=== PATIENT | male | born 1950 | race Caucasian/White ===

== ENCOUNTER 2024-08-23 23:33 | Inpatient (IN) | payer OTHER, MEDICARE, SELFPAY ==
[2024-08-23 18:59] VITALS: BP 148/83
[2024-08-23 19:19] LABS: Urine Albumin 1+ (Neg - Trace); Urine Bilirubin Negative (Negative); Urine Character Clear (Clear); Urine Color Yellow; Urine Glucose Negative (Negative); Urine Ketone Negative (Negative); Urine Leukocyte 2+ (Negative); Urine Nitrite Negative (Negative); Urine Occult Blood 4+ (Negative); Urine Urobilinogen Negative (Neg - 1+)
[2024-08-23 19:25] LABS: Urine Squamous Cell 0-2 /LPF (Few)
[2024-08-23 19:26] LABS: Urine Bacteria Moderate (Negative); Urine White Cell 90-100 /HPF (0-5)
[2024-08-23 20:05] VITALS: BMI 26.6
--- NOTE | 2024-08-23 20:08 | ED.GENMED ---
History of Present Illness
General
Chief Complaint: Male Genito-Urinary Symptoms
Source: patient and spouse
Exam Limitations: none
Time Seen by Provider: 08/23/24 19:43
History of Present Illness
History of Present Illness:
This is a 73 year old male that is brought in by his family with c/o abd pain. states that over the past year she has noticed that he is spending more and more time in the bathroom. Patient states that he has the urge to urinate and he has a
good stream but there is burning. Family feels that his walking is not steady. Patient states that he has been constipated and he only goes every other day. Denies any fever, chills, chest pain, SOB, abd pain, nausea, vomiting, diarrhea, headache,
dizziness.
Past History
Past History
ED Past Medical History: Arrthythmia (Atrial fi), Psychiatric (Anxiety) and Other (Renal calculus)
ED Past Surgical History: Cardiac (Valve repair)
Social History
Tobacco: Non-smoker
Alcohol: None
Personal:
Living: with family
Review of Systems
Review of Systems
All Other Systems: ROS reviewed and negative except as documented in HPI and ROS
Constitutional: Reports no symptoms; Denies fever or chills
EENT: Reports no symptoms
Respiratory: Reports no symptoms; Denies cough or trouble breathing
Cardiac: Reports no symptoms; Denies chest pain
ABD/GI: Reports constipated; Denies abdominal pain, nausea, vomiting or diarrhea
: Reports dysuria; Denies frequency or urgency
Musculoskeletal: Reports no symptoms
Skin: Reports no symptoms
Neurological: Reports no symptoms; Denies dizzy or headache
Psychiatric: Reports no symptoms
Phy Exam
General Physical Exam
General Presentation: no apparent distress
General age: appears older than age
General Skin: warm and dry
General Habitus: elderly
General Mental: alert
General Hydration: dry mucous membranes
ENT Exam
ENT Exam: TM's normal, pharynx normal and neck supple
Eye Exam
Eye Exam: EOMI
Cardiovascular Exam
Cardiovascular Exam: normal peripheral pulses and irregularly irregular
Pulmonary Exam
Pulmonary Exam: lungs clear, no respiratory distress, no rales, chest non tender, no crackles, no rhonchi, no wheezing and no cough
Gastrointestinal Exam
Gastrointestinal Exam: normal bowel sounds, non tender, soft, no organomegaly, no pulsatile mass and non distended
Musculoskeletal Exam
Musculoskeletal Exam: full ROM and edema (+1 pitting edema in both lower legs)
Skin Exam
Skin Exam: normal color, warm/dry, no rash and no petechia
Psychiatric Exam
Psychiatric Exam: normal mood/affect
Course
Orders/Labs/Results
Orders:
Orders
08/23/24 19:15
Urinalysis Reflex To Culture Urgent
Date Specimen was Collected: 08/23/24
Time Specimen was Collected: 19:09
Urine Microscopic Reflex Cult Urgent
Urine Culture Urgent
JILLIAN Source: U
Specimen Description:
Date Specimen was Collected: 08/23/24
Time Specimen was Collected: 19:09
08/23/24 19:55
Electrocardiogram (*1) Urgent
Reason for Study: Abdominal Pain
CT Abd/pel Without Iv Or Oral Urgent
Comment: UTI history of stones
Reason For Exam: abd pain,
EKG- Treatment ONCE
CefTRIAXone [Rocephin] 1,000 mg IV NOW STA
08/23/24 20:09
Bladder Scan- Treatment ONCE
08/23/24 20:16
Complete Blood Count/With Diff Urgent
Comprehensive Metabolic Panel Urgent
Lactate Level [Lactic Acid] Urgent
08/23/24 21:04
Sterile Water [Sterile Water For Injection] 10 ml .ROUTE .[facility]
08/23/24 21:24
Bernard [Bernard Placement- Treatment] ONCE
Reason for insertion: Acute Retention
Abnormal Lab Results
08/23/24 08/23/24
19:15 20:16
RBC 4.36 L 10^6/uL
(4.70-6.10)
Hgb 11.4 L g/dL
(13.0-18.0)
Hct 34.8 L %
(39.0-52.0)
MCV 79.8 L fL
(80.0-94.0)
MCH 26.1 L pg
(27.0-31.0)
MCHC 32.8 L g/dL
(33.0-37.0)
RDW 14.6 H %
(11.5-14.5)
Abs Immat Gran (auto) 0.1 H 10^3/uL
(0-0.05)
Absolute Neuts (auto) 7.5 H 10^3/uL
(1.4-6.5)
Absolute Lymphs (auto) 1.0 L 10^3/uL
(1.2-3.4)
Absolute Monos (auto) 0.8 H 10^3/uL
(0.1-0.6)
Immature Gran % 1.1 H %
(0-0.5)
Neutrophils % 77.8 H %
(42.2-75.2)
Lymphocytes % 10.8 L %
(20.5-51.1)
Chloride 109 H mmol/L
(98-107)
Carbon Dioxide 21 L mmol/L
(22-30)
BUN 56 H mg/dl
(9-20)
Creatinine 2.3 H mg/dL
(0.7-1.3)
Ur Occult Blood Reflex 4+ A
(Negative)
Leukocyte Esterase Rfl 2+ A
(Negative)
Urine RBC 3-6 A /HPF
(0-2)
Urine WBC (Reflex) 90-100 A /HPF
(0-5)
Urine Bacteria (Reflex) Moderate A
(Negative)
Urine Albumin (Reflex) 1+ A
(Neg - Trace)
08/23/24 20:16
08/23/24 20:16
UTI, H/H slightly low. Anemia, Chloride slightly elevated. Acute renal failure, Lactic acid normal at 1.1
Vital Signs
Initial and Last Documented VS:
Initial Vital Signs
Temp Pulse Resp BP Pulse Ox
97.7 F 91 16 148/83 100
08/23/24 18:59 08/23/24 18:59 08/23/24 18:59 08/23/24 18:59 08/23/24 18:59
Last Documented Vital Signs
Temp Pulse Resp BP Pulse Ox
98.5 F 75 18 143/87 99
08/23/24 20:06 08/23/24 21:25 08/23/24 21:25 08/23/24 21:25 08/23/24 21:25
MDM/Problems Addressed
Differential Diagnosis Includes:
UTI, Urinary retention, Constipation
MDM/Problems Addressed:
This is a 73 year old male that comes in with c/o abd pain. states that over the past year he is spending more and more time in the bathroom. Patient states that he is constipated and that he goes every other day and had a good BM yesterday.
State that he also has urinary burning.
Will check labs. Urine and get CT to r/o any obstructing stone.
CT cont-incompletely included on this study. Moderate size predominantly fat only containing right inguinal hernia.
Back into see patient and family. Will admit patient as his Kidney function shows renal failure and there is no other labs to compare with. Patient also has a UTI with retention and needed a Catheter. Family states that there is also a little
Depression going on as there are issues at home. Will admit. Hospitalist notified. Chest X-ray was questionable but there is no coughing, WBC count or fever. so will hold off on any other antibiotic except the Rocephin.
Chronic conditions affecting care:
NA
Acute Exacerbation and/or Progression of Chronic Illness:
NA
*Radiology
Radiology exam reviewed: radiology read reviewed (CT-Tiny nonobstructing left renal calculus. Right kidney off axis and located caudally within the right lower quadrant. Moderate bilateral renal collecting system dilation and moderate bilateral
dilated, markedly tortuous bilateral ureter without discrete finding to confirm opaque calculus along ), all reviewed NAD by ED Provider (CT cont- cours of the ureter bilaterally. Ureteral dilation and renal collecting system dilatation could be on
the basis of bilateral vesicoureteral reflux. Small simple hepatic cysts as well as additional scattered smaller low-attenuation hepatic lesions too small to characterize. Enlarged prostate) and other (CT cont-At least relative diffuse wall
thickening of the urinary bladder due to underdistention. Cannot exclude other etiology such as cystitis or bladder outlet obstruction. Cholelithiasis. Small focus of lingular opacification with air bronchograms. Cannot exclude pneumonia. Likely
cardiomegaly, )
*Pulse Oximetry
Patient hypoxic: no
*Director Of Quality Interpretation
Rate: Director Of Quality- N/A
*Critical Care Note
Total Time (30-74mins, 75-104mins- exclusive of procedures): Not Applicable
ED Attending Note
-
Portions of this chart may have been created with voice recognition software.� Occasional wrong word or��sound alike� substitutions may have occurred due to the inherent limitations of voice recognition software.
Discharge Plan
Departure
Patient Disposition: Admit
Date of Disposition: 08/23/24
Time of Disposition: 22:19
Admit to: Med/Surg
Presentation/result/management discussed w/ accepting MD/DO: Hospitalist
Patient with high blood pressure during this ER visit?: Yes
Condition: Good
Covid-19: Not Applicable
Discharge Problem:
Urinary tract infection, Acute renal failure, Acute urinary retention
Prescriptions:
No Action
metoprolol succinate 50 mg Tablet Extended Release 24 Hr
75 mg PO QPM
aspirin 81 mg Tablet,Chewable
81 mg PO QPM
nifedipine 60 mg Tablet Extended Release
60 mg PO QPM
apixaban 5 mg Tablet
5 mg PO BID
calcium carb-mag ox-zinc gluc 333-133-5 mg Tablet
1 tab PO QPM
Interventions
Interventions:
*Risk Screen - Suicide Last Done: 08/23/24 18:59
*General Assessment Last Done: 08/23/24 20:08
*Neglect/Abuse Screening Last Done: 08/23/24 20:08
*ED COVID-19 Vaccine History Last Done: 08/23/24 20:08
Discharge Date and Time
Print Language: CITIZEN OF [place]
[2024-08-23 20:09] VITALS: BP 131/75
[2024-08-23 20:31] LABS: % Basophils 0.6 % (0-2); % Eosinophils 1.1 % (0-6); % Immature Granulocytes 1.1 % (0-0.5); % Lymphocytes 10.8 % (20.5-51.1); % Monocytes 8.6 % (1.7-9.3); % Neutrophils 77.8 % (42.2-75.2); Absolute Basophils 0.1 10^3/uL (0-0.2); Absolute Eosinophils 0.1 10^3/uL (0-0.7); Absolute Immature Granulocytes 0.1 10^3/uL (0-0.05); Absolute Monocytes 0.8 10^3/uL (0.1-0.6); Absolute Neutrophils 7.5 10^3/uL (1.4-6.5); Hematocrit 34.8 % (39.0-52.0); Hemoglobin 11.4 g/dL (13.0-18.0); Mean Corp Hgb Conc. 32.8 g/dL (33.0-37.0); Mean Corpuscular Hgb 26.1 pg (27.0-31.0); Mean Corpuscular Volume 79.8 fL (80.0-94.0); Mean Platelet Volume 8.3 fL (7.4-10.4); Nucleated Red Blood Cells % 0 % (-); Platelet Count 281 10^3/uL (130-400); Red Blood Cell Count 4.36 10^6/uL (4.70-6.10); Red Cell Dist. Width 14.6 % (11.5-14.5); White Blood Cell Count 9.6 10^3/uL (4.8-10.8)
[2024-08-23 20:36] LABS: Lactic Acid 1.1 mmol/L (0.7-2.0)
[2024-08-23 20:45] LABS: ALT (SGPT) 13 U/L (0-50); AST (SGOT) 19 U/L (17-59); Alkaline Phosphatase 43 U/L (38-126); Blood Urea Nitrogen 56 mg/dl (9-20); Calcium 9.2 mg/dl (8.4-10.2); Carbon Dioxide 21 mmol/L (22-30); Chloride 109 mmol/L (98-107); Estimated Creatinine Clearance 29 ml/min; Glucose 83 mg/dl (70-99); Potassium 4.5 mmol/L (3.5-5.1); Sodium 145 mmol/L (135-145); Total Bilirubin 1.1 mg/dl (0.2-1.3); Total Protein 7.1 g/dl (6.3-8.2); eGFR 29.62
[2024-08-23 21:25] VITALS: BP 143/87
[2024-08-23] MEDS: ROCEPHIN 1000 MG IV (21:27)
--- NOTE | 2024-08-23 22:26 | HPS.HSE ---
Family Physician
-
Family Physician:
Chief Complaint
-
Sony frequency x 5 months, dysuria
History of Present Illness
73-year-old male brought in by family complaining of urinary frequency with burning for the past 5 months. He also reports he normally has a bowel movement daily but a change to every other day for the past month and he was worried. He does not
typically go to a doctor per his Lynne. She states that he went once in October of this year and then on 08/20/[address] Viktor Arthur He had outpatient labs done by [facility] with urine culture showing Enterococcus faecalis that is
pansensitive. His creat in October was 1.44 his creatinine on 08/20/2024 was 2.55 with bun of 60 and his PSA was 14.1 according to his he does not go to physicians. There is family history of kidney issues with his brother she is unsure what
type. The patient does have history of renal calculi which he passed on his own not requiring any intervention. He denies headache, fever, chills, chest pain, palpitations, shortness breath, cough, abdominal pain, nausea, vomiting, diarrhea.
He has past medical history of A-fib on eliquis , anxiety, renal calculi, aortic valve replacement 10 years ago [facility] [address]. Mata
Medical History
Past Medical History
Past Medical History: Reports Other
Additional Past Medical History:
A-fib on Eliquis
anxiety
renal calculi
AVR 10 years ago [facility] [address]. Mata
Past Surgical History: Reports Other
Additional Past Surgical History:
AVR 10 years ago [facility] Dr. Mata
Social History
Tobacco: Non-smoker
Alcohol: None
Drug: None
Personal:
Living: With Family ()
Employment: Retired
Family History
Family History: Other (Brother kidney issues unknown, mother Lewy body dementia, father CHF)
Allergies / Home Medications
Allergies reflects when Allergies were last updated in [facility].
Home Medications with original date entered in [facility]
Allergy/Medication List:
Allergies
Allergy/AdvReac Type Severity Reaction Status Date / Time
No Known Allergies Allergy Unverified 08/23/24 19:05
Home Medications
apixaban 5 mg tablet 5 mg PO BID 08/23/24
aspirin 81 mg chewable tablet 81 mg PO QPM 08/23/24
calcium 333 mg (carbonate)-magnesium 133 mg (oxide)-zinc 5 mg tablet 1 tab PO QPM 08/23/24
metoprolol succinate 50 mg tablet,extended release 24 hr 75 mg PO QPM 08/23/24
nifedipine 60 mg tablet,extended release 60 mg PO QPM 08/23/24
Review of Systems
-
History Source: Patient and Family ( and daughter at bedside)
A 12 point ROS was completed and negative except as noted: Yes
Constitutional: Denies Fatigue or Chills
EENT: Denies Sore Throat or Runny Nose
Respiratory: Denies Cough or Trouble Breathing
Cardiac: Denies Chest Pain, Diaphoresis, Palpitations or Syncope
Abdomen/GI: Denies Abdominal Pain, Nausea, Vomiting, Diarrhea, Constipated, Bloody Stools or Black Stools
: Reports Dysuria, Frequency, Difficulty Voiding and Urgency; Denies Flank Pain or Dark Urine
Musculoskeletal: Denies Joint Pain or Edema
Skin: Denies Itching or Rash
Neurological: Denies Dizzy, Headache or Weakness
Endocrine: Reports No Symptoms
Hematologic/Lymphatic: Reports No Symptoms
Psych: Reports Calm
Physical Exam
Vital Signs
Vital Signs
Temp Pulse Resp BP Pulse Ox
98.5 F 75 18 143/87 99
08/23/24 20:06 08/23/24 21:25 08/23/24 21:25 08/23/24 21:25 08/23/24 21:25
Physical Exam
General: Conversant and Pain (From insertion of Bernard catheter); No Fever or Chills
HEENT: NormoCephalic, Anicteric, Moist mucous membranes, PERRLA, Harvey Conjunctivae and No Ptosis
Respiratory: Clear; No Wheezes, Rales or Rhonchi
Cardiac: S1/S2 and Regular Rhythm; No Murmur, Rub, Gallop or Peripheral Edema
Breast: Deferred by me
GI: Soft, Non Tender, Non Distended, Normal Bowel Sounds and No Hepatosplenomegaly
Rectal: Deferred by Provider
Genito-urinary: Bernard (Hematuria with elongated scattered clots)
Musculoskeletal: No Clubbing, No Cyanosis and No Edema
Skin: Warm and Dry; No Rash
Neuro: AO x 3, No Motor Deficits, Nonfocal/grossly intact, Cranial Nerves Intact and No Sensory Deficits; No Slurred Speech, Facial Droop, Tremors or Sedated
Psych: Agitated (Becomes agitated very easily during exam with questions)
Laboratory Results
-
08/23/24 20:16
08/23/24 20:16
Laboratory Results
Lactic Acid 1.1 mmol/L (0.7-2.0) 08/23/24 20:16
Total Bilirubin 1.1 mg/dl (0.2-1.3) 08/23/24 20:16
AST 19 U/L (17-59) 08/23/24 20:16
ALT 13 U/L (0-50) 08/23/24 20:16
Alkaline Phosphatase 43 U/L (38-126) 08/23/24 20:16
Data Reviewed
-
CT Scan: Report Reviewed by me
Lab Data: Labs Reviewed by me
Impression/Plan
-
Impression/plan:
[facility]
#Symptomatic UTI with Acute urinary retention and hematuria
Urine culture on 08/20/2024 grew Enterococcus faecalis pansensitive ([facility])
-UA WBC 90�100, mod bacteria, +2 leukocyte plus for blood
-Follow repeat urine culture
-Bernard catheter 16F inserted in ER monitor output
-IV Unasyn
-Hold Eliquis, aspirin
-Consult Urology- Dr chiu made aware
-Follow CBC, BMP
CT abdomen pelvis without IV or oral contrast:
1. nonobstructing left renal calculus.
2. Right kidney off axis and located caudally within the right lower quadrant. Moderate bilateral renal collecting system dilatation and moderate bilateral dilated, markedly tortuous bilateral ureters without discrete
finding to confirm opaque calculus along the course of the ureters bilaterally. Ureteral dilatation and renal collecting system dilatation could be on the basis of bilateral vesicoureteral reflux.
3. Small simple hepatic cysts as well as additional scattered smaller low-attenuation hepatic lesions too small to characterize.
4. Enlarged prostate. At least relative diffuse wall thickening of the urinary bladder due to underdistention. Cannot exclude other etiology such as cystitis or bladder outlet obstruction.
5. Cholelithiasis.
#SAMPSON likely secondary to Acute urinary retention/Ureteral dilatation and renal collecting system dilatation
Creat 2.3/bun 56-reviewed patient's labs from 08/20/2024 creat 2.5/bun 60, October 31, 2023 creat 1.44
SEE LABS/Urine CULTURE SCANNED INTO CHART
Bernard catheter 16 F was inserted in ER with 500 cc yellow cloudy sediment drainage
-IV NSS
-Follow BMP
#Enlarged prostate per CT
PSA level of 14.1 on 08/20/2024 outpatient [facility]
#Microcytic anemia
-Hgb 11.4, MCV 79.8
-Check iron panel, B12, folate
#A-fib unknown type
-Hold Eliquis 5 mg twice daily(last dose was 2 AM 08/23/2024), aspirin 81 mg due to hematuria
-Continue metoprolol succinate 75 mg every afternoon, nifedipine 60 mg every afternoon
EKG: Atrial flutter with A-V block 90 bpm, QTc 491 MS no previous EKGs available
# AVR 10 years ago [facility] Dr. Mata
#Anxiety
-No reported meds
#Recent a1c 5.7% on 08/20/24 per [facility]
DVT prophylaxis
Hold W[employer]T [employer] Eliquis due to hematuria last dose was 2 AM 08/23/2024
Full code
[2024-08-23 22:58] LABS: Iron 38 ug/dl (49-181)
[2024-08-23] MEDS: LIDOCAINE URO-JET 2% 1 SYRINGE TOPICAL (22:59)
[2024-08-23 23:02] VITALS: BP 144/99
[2024-08-23 23:07] LABS: Percent Saturation 18 % (20-50); Total Iron Binding Capacity 210 ug/dl (261-462)
[2024-08-23 23:52] VITALS: BP 135/90
--- NOTE | 2024-08-24 00:03 | W.PN.UPDATE ---
Update Note
Progress Note Update
Patient seen in conjunction with TRENTON. I agree with her findings on history and physical as well as concur with the assessment and plan unless stated otherwise.
This is a 73-year-old with past medical history of valve repair, atrial fibrillation on apixaban and metoprolol succinate, hypertension presenting to the emergency department with approximately 1 day of abdominal pain, urinary frequency and dysuria.
He reportedly was unable to tolerate p.o. today due to abdominal pain. He denied abdominal distention. He reports nausea but no vomiting. Patient fairly poor historian but stated that he has been having urinary symptoms for several weeks.
Reports urinary frequency that is worse with any p.o. intake. He does report good stream. However over the last few days he has been having more dysuria and today reported having abdominal pain. Denies flank pain fevers or chills. Was reported
to have urinary issues several months ago but patient did not follow-up with PMD or urology. He has no urgency, frequency and nocturia.
On arrival in the ED he was afebrile, blood pressure was stable at 143/87 pulse 75 he was satting 99%. There was no leukocytosis hemoglobin was 11.4 with a platelet count of 281. Is a BUN electrolytes were notable for a BUN of 56 and a creatinine
of 2.3 which is up from prior baseline by 1 mg per DL. While in the Emergency Department the patient had urinary retention of about 500 cc. There was sensation of urinary catheter with dilution of punch colored urine which has not cleared.
A review of his prior labs showed that in the October his creatinine was 1.4. He has known elevated PSA. CT of the abdomen pelvis without contrast showed enlarged prostate, bladder wall changes associated with bladder outlet obstruction, dilated
and tortuous bilateral ureters and collecting system. Dilated renal pelvises. Nonobstructing stones.
Assessment and plan
1. Urinary retention - Suspect bladder outlet obstruction secondary to BPH. Appears subacute based on history and findings. No prostatitis on examination. Did not endorse improved abdominal pain after urinary catheter.
- admit to med surg
- maintain floyd for now pending repeat creatinine
- iv fluids with Normal saline at 100 ml/hr, follow i/o
- minor hematuria, suspect from floyd, holding eliquis and monitor for clearance
- bladder scan if decreased po
- urology consult
- start tamsulosin
- known elevated psa, follow up with urology
2. UTI - No recent abx use. No recent hospitalization. No h/o uti's. Outpatient cultures with enterococcus
- urine culture from 08/20 with 10-25k cfu of enterococcus, [place]-sensitive.
- repeat urine culture
- unasyn iv for now and follow up symptoms
3. SAMPSON - Cr 1.4 in October. Now 2.3. Bladder outlet obstruction on imaging and examination. Subacute
- s/p floyd and monitor i/o and uop
- may need additional iv fluids for post-obstructive diuresis
- consider nephrology if BUN/Cr remains elevated in 24 hours
4. HTN
- continue metoprolol and nifedipine
5. AFIB
- hold apixaban, when u/a clears can restart apixaban in am
- continue metoprolol
- hold aspirin
DVT PPX - on apixaban
Code Status - full code
[2024-08-24 00:20] VITALS: BP 129/75
[2024-08-24 00:43] VITALS: BP 156/87; BMI 27.2
[2024-08-24 00:55] VITALS: BMI 27.2
[2024-08-24] MEDS: NSS 1000 IV ×3 (01:19→22:19)
[2024-08-24] MEDS: TYLENOL 650 MG PO (01:20)
[2024-08-24 02:59] LABS: Folate 8.7 ng/ml (2.76-20); Vitamin B12 473 pg/ml (239-931)
[2024-08-24 07:14] VITALS: BP 142/90
--- NOTE | 2024-08-24 07:14 | CON.MD ---
Consultation - Medical
-
see dictated note
pt without regular med exams/labs
reports no prior gu hx or sig voiding sx's
developed urinary burning and pain
by report- seen at primary with ucx + for enterococcus and psa= 14 (no known baseline)
presented to ER last night with worsening sx's- cr also noted to be elevated
CT scan showed distended bladder/BPH/ and bilateral hydro (suspected due to bladder obstruction) with right pelvic kidney
on placement of floyd- hematuria noted- eliquis held
this am pt says he is feeling much better
urine clearing
labs pending
plan
flomax and proscar
floyd
trend cr level- suspect hydro due to chronic retention- but will observe renal function for improvement
treat UTI
elevated psa may be due to infx/bph but can not r/o cancer at this time
if pt improves- would discharge with floyd (VN consult) placed- flomax and proscar for outpt voiding trial in 2-3 weeks and then re-assessment of other parameters
will follow
--- NOTE | 2024-08-24 07:32 | W.PN.HOSP.TC ---
Today's Communication/Plan
-
see bold
Assessment / Plan
Assessment / Plan
HPI: 73-year-old male brought in by family complaining of urinary frequency with burning for the past 5 months. He also reports he normally has a bowel movement daily but a change to every other day for the past month and he was worried. He does
not typically go to a doctor per his Lynne. She states that he went once in October of this year and then on 08/20/[address] Viktor Arthur He had outpatient labs done by [facility] with urine culture showing Enterococcus faecalis
that is pansensitive. His creat in October was 1.44 his creatinine on 08/20/2024 was 2.55 with bun of 60 and his PSA was 14.1 according to his he does not go to physicians.
#Acute urinary retention
#BPH with elvated PSA
Started on Flomax and Proscar
Appreciate urology input, plans for discharge with Floyd, follow-up in the office in 2-3 weeks for void trial
Creatinine trending down, continue to monitor
Avoid nephrotoxic drugs/NSAIDs
#Acute urinary tract infection
08/20/24 urine cultures growing Enterococcus
Continue unasyn, follow-up on urine cultures here
#Obstructive uropathy
#Acute kidney injury
Creatinine improved, continue to monitor
No nephrotoxic drugs/NSAIDs
#Hematuria post Floyd insertion, traumatic
Improving, Floyd bag without blood today
Holding Eliquis, monitor hemoglobin
#Atrial flutter/fib, unknown type
History of AVR
Holding Eliquis due to the above
Continue metoprolol succinate
requesting transfer from [place] [facility] to here, will consult cardiology here
Obtain records from [place], Dr. Mata
#Concern for depression
reports many stressors in patient's life
Check TSH, B12
Recommend follow-up with PCP for assessment
DVT prophylaxis�SCDs due to the above, resume Eliquis when cleared by urology
Full code
Updated on phone 08/24
Total time spent to see the patient on the floor, examine the patient, review data and lab results, discuss treatment plan with patient, nursing staff around 51 minutes.
Physical Exam
General: No acute distress
HEENT: Normocephalic, Atraumatic, EOMI, MMM
Respiratory: Clear to Auscultation bilaterally
Cardiac: Normal S1/S2, Regular Rate and Rhythm
GI: Soft, Nontender, Nondistended, Normal Bowel Sounds
Extremities: No Clubbing, Cyanosis, or Edema
: floyd w/ tea colored urine
Neuro: Nonfocal/Grossly Intact
Psych: Calm, Cooperative
Derm: No Visible lesions
Anticipated Discharge: 24 - 48 hours
Subjective/Interval History
-
Date of Service: August 24, 2024
Patient denies chest pain, shortness of breath, nausea, vomiting. No abdominal pain. No fever.
Objective Data
-
Labs:
Laboratory Results
08/23/24 08/24/24
20:16 07:14
WBC 9.6 Pending
Hgb 11.4 L Pending
Hct 34.8 L Pending
Plt Count 281 Pending
Sodium 145 Pending
Potassium 4.5 Pending
Chloride 109 H Pending
Carbon Dioxide 21 L Pending
BUN 56 H Pending
Creatinine 2.3 H Pending
Glucose 83 Pending
Calcium 9.2 Pending
Total Bilirubin 1.1 Pending
AST 19 Pending
ALT 13 Pending
Alkaline Phosphatase 43 Pending
Vital Signs:
Vital Signs
Temp Pulse Resp BP Pulse Ox
98.5 F 83 18 156/87 100
08/24/24 00:43 08/24/24 00:43 08/24/24 00:43 08/24/24 00:43 08/24/24 01:00
I&O
08/23/24 08/24/24 08/25/24
06:59 06:59 06:59
Output Total 1225 / 1225
Balance -1225 / -1225
[2024-08-24 07:44] LABS: % Basophils 0.5 % (0-2); % Eosinophils 1.6 % (0-6); % Immature Granulocytes 1.1 % (0-0.5); % Lymphocytes 13.4 % (20.5-51.1); % Monocytes 10.3 % (1.7-9.3); % Neutrophils 73.1 % (42.2-75.2); Absolute Eosinophils 0.1 10^3/uL (0-0.7); Absolute Immature Granulocytes 0.1 10^3/uL (0-0.05); Absolute Lymphocytes 1.1 10^3/uL (1.2-3.4); Absolute Monocytes 0.9 10^3/uL (0.1-0.6); Absolute Neutrophils 6.1 10^3/uL (1.4-6.5); Hematocrit 34.9 % (39.0-52.0); Hemoglobin 11.2 g/dL (13.0-18.0); Mean Corp Hgb Conc. 32.1 g/dL (33.0-37.0); Mean Corpuscular Hgb 26.7 pg (27.0-31.0); Mean Corpuscular Volume 83.1 fL (80.0-94.0); Mean Platelet Volume 8.3 fL (7.4-10.4); Nucleated Red Blood Cells % 0 % (-); Platelet Count 277 10^3/uL (130-400); Red Cell Dist. Width 14.6 % (11.5-14.5); White Blood Cell Count 8.3 10^3/uL (4.8-10.8)
[2024-08-24] MEDS: FLOMAX 0.4 MG PO (08:47)
[2024-08-24] MEDS: PROSCAR 5 MG PO (08:47)
[2024-08-24 09:24] LABS: ALT (SGPT) 12 U/L (0-50); AST (SGOT) 13 U/L (17-59); Albumin 3.4 g/dl (3.5-5.0); Alkaline Phosphatase 49 U/L (38-126); Blood Urea Nitrogen 46 mg/dl (9-20); Calcium 8.8 mg/dl (8.4-10.2); Carbon Dioxide 21 mmol/L (22-30); Chloride 111 mmol/L (98-107); Estimated Creatinine Clearance 32 ml/min; Glucose 98 mg/dl (70-99); Potassium 4.4 mmol/L (3.5-5.1); Sodium 144 mmol/L (135-145); Total Bilirubin 0.9 mg/dl (0.2-1.3); Total Protein 6.1 g/dl (6.3-8.2); eGFR 35.02
--- NOTE | 2024-08-24 09:50 | VNURNOTE ---
Home Health Liaison met with patient at bedside to discuss [facility] nurse/therapy, visits, schedule and homebound status. Patient is agreeable and understands that visits at home will be 2-3 x per week to assess and teach medical and floyd management.
[facility] brochure provided with contact information. Patient is aware that [facility] will contact them for start of care in 1-2 days after discharge from .
[facility] referral completed in [facility].
--- NOTE | 2024-08-24 11:10 | CON.CAR ---
Addendum entered and electronically signed by Jeffrey Cerna MD 08/24/24 16:07:
73 yo male with PMH of atrial fibrillation, type unknown, bio-AVR (approx 2103) is admitted with hematuria. He has no cardiac complaints. Exam with RRR, no murmurs, no edema. EKG: A fib, HR 90bpm.
Stop ASA 81mg permanently. Resume eliquis when stable from urologic perpsective.
We will arrange for outpatient follow up with us.
Please call us with additional questions.
Original Note:
Consultation
Consultation Request
Date/Time Consultation Requested: 08/24/2024 10:50
Date/Time Consultation Performed: 08/24/2024 11:10
Requesting Provider: Dr. Chandra Lincoln
Performing Provider: TRENTON Gerber for Dr. Cerna
Reason for Consultation: Hematuria on apixaban
Medical History
-
Chief Complaint: Urinary frequency with burning
History of Present Illness:
Conrad Browning is a 73-year-old male with prior aortic valve replacement (about 10 years ago), atrial fibrillation (type unknown, on apixaban), anxiety, CKD and renal calculi who presented to the emergency department with a chief complaint of urinary
frequency with burning for nearly 5 months. Since his admission, he has had a Bernard catheter placed. He initially had hematuria after catheter placement. This was likely in the setting of trauma. Urine is yellow and draining freely into the Bernard
catheter during this evaluation. He is not sure why he is on both aspirin and apixaban. He has never had stents. No recent NM. Never had a CVA.
He is followed by Dr. Mata at [facility]. He reports Dr. 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
Past Medical History
Past Medical History: Arrhythmias (Atrial fibrillation (type unknown, on apixaban)), Renal Failure (CKD), Valvular Disease (Prior ADR) and Psychiatric (Anxiety)
Past Surgical History: Cardiac (AVR)
Social History
Tobacco: Non-Smoker
Alcohol: None
Personal:
Living: With Family
Employment: Retired
Family History
Family History: Reviewed & Not Pertinent (Denies early CAD and SCD.)
Allergies / Home Medications
Allergy/AdvReac Type Severity Reaction Status Date / Time
No Known Allergies Allergy Unverified 08/23/24 19:05
�Medication �Instructions �Recorded �Confirmed �Type
apixaban 5 mg tablet 5 mg PO BID 08/23/24 08/23/24 History
aspirin 81 mg chewable tablet 81 mg PO QPM 08/23/24 08/23/24 History
calcium 333 mg 1 tab PO QPM 08/23/24 08/23/24 History
(carbonate)-magnesium 133 mg
(oxide)-zinc 5 mg tablet
metoprolol succinate 50 mg 75 mg PO QPM 08/23/24 08/23/24 History
tablet,extended release 24 hr
nifedipine 60 mg tablet,extended 60 mg PO QPM 08/23/24 08/23/24 History
release
Review of Systems
-
History Source: Patient
All other systems: Negative unless noted
Constitutional: No Symptoms
EENT: No Symptoms
Respiratory: No Symptoms
Cardiac: No Symptoms
Abdomen/GI: No Symptoms
: No Symptoms
Musculoskeletal: No Symptoms
Skin: No Symptoms
Neurological: No Symptoms
Endocrine: No Symptoms
Hematologic/Lymphatic: No Symptoms
Physical Exam
Vital Signs
Temp Pulse Resp BP Pulse Ox
98.2 F 86 20 142/90 98
08/24/24 07:14 08/24/24 07:14 08/24/24 07:14 08/24/24 07:14 08/24/24 07:14
Lab Results
08/24/24 07:14
08/24/24 07:14
Physical Exam
General: Well Developed, Well Nourished, No Apparent Distress and Comfortable
HEENT: Normocephalic, Anicteric and Moist Mucous Membranes
Respiratory: Clear and Non Labored Respirations
Cardiac: S1/S2 and Irregular Rhythm; Negative Peripheral Edema
Breast: Deferred by me
GI: Soft, Non Tender, Non Distended and Normal Bowel Sounds
Rectal: Deferred by Provider
Genito-urinary: No Costovertebral Tender
Musculoskeletal: No Clubbing, No Cyanosis and No Edema
Skin: Warm and Dry
Neuro: AO x 3
Hematologic/Lymphatic: No Lymphadenopathy
Psych: Calm
Impression / Plan
-
BACKGROUND: 73M prior aortic valve replacement, atrial fibrillation (type unknown, on apixaban), anxiety, CKD and renal calculi who presented to the emergency department with a chief complaint of urinary frequency with burning for nearly 5 months.
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
IMPRESSION/PLAN:
Hematuria with SAMPSON on CKD
UTI
-Now with Bernard catheter, renal function improving
-No hematuria, perhaps prior hematuria was in the setting of Bernard placement trauma
-CT: Moderate bilateral renal collecting system dilatation and moderate bilateral dilated, markedly tortuous bilateral ureters
Atrial fibrillation, type unknown
-Rate controlled on metoprolol succinate 75 mg daily
-On both apixaban 5 mg twice daily and aspirin, no need to resume aspirin
-[id number]: score at least 2 (HTN, age 65-74)
Hypertension, on metoprolol succinate and nifedipine
Status post AVR (about 10 years ago per patient), stable
Prediabetes
Abnormal PSA
Data Reviewed
-
EKG: Report Reviewed by me
--- NOTE | 2024-08-24 11:20 | CM ---
Patient seen at bedside.
IA completed - CM consult completed for HH
Reviewed options of HH agencies. Prefer [facility] - referral placed in [facility]. Liaison notified.
Lives in an apartment with . No steps.
Denies DME
Denies food/housing/utilities/transportation insecurities
PCP: Viktor Arthur
Pharmacy: [facility]
PLAN: home, [facility]
[2024-08-24] MEDS: UNASYN IV ×2 (11:27)
[2024-08-24 15:03] VITALS: BP 152/91
[2024-08-24] MEDS: TOPROL XL 75 MG PO (17:22)
[2024-08-24] MEDS: PROCARDIA XL (EXTENDED RELEASE) 60 MG PO (17:22)
[2024-08-24 23:38] VITALS: BP 117/81
[2024-08-25] MEDS: UNASYN IV ×2 (00:14→10:58)
[2024-08-25 06:29] LABS: % Basophils 0.6 % (0-2); % Eosinophils 1.9 % (0-6); % Immature Granulocytes 1.4 % (0-0.5); % Lymphocytes 13.3 % (20.5-51.1); % Monocytes 7.8 % (1.7-9.3); Absolute Basophils 0.1 10^3/uL (0-0.2); Absolute Eosinophils 0.2 10^3/uL (0-0.7); Absolute Immature Granulocytes 0.1 10^3/uL (0-0.05); Absolute Lymphocytes 1.3 10^3/uL (1.2-3.4); Absolute Monocytes 0.7 10^3/uL (0.1-0.6); Absolute Neutrophils 7.1 10^3/uL (1.4-6.5); Hematocrit 34.1 % (39.0-52.0); Hemoglobin 10.8 g/dL (13.0-18.0); Mean Corp Hgb Conc. 31.7 g/dL (33.0-37.0); Mean Corpuscular Hgb 26.4 pg (27.0-31.0); Mean Corpuscular Volume 83.4 fL (80.0-94.0); Mean Platelet Volume 8.2 fL (7.4-10.4); Nucleated Red Blood Cells % 0 % (-); Platelet Count 252 10^3/uL (130-400); Red Blood Cell Count 4.09 10^6/uL (4.70-6.10); Red Cell Dist. Width 14.7 % (11.5-14.5); White Blood Cell Count 9.4 10^3/uL (4.8-10.8)
[2024-08-25 06:57] LABS: ALT (SGPT) 12 U/L (0-50); AST (SGOT) 15 U/L (17-59); Albumin 3.1 g/dl (3.5-5.0); Alkaline Phosphatase 36 U/L (38-126); Blood Urea Nitrogen 32 mg/dl (9-20); Calcium 8.2 mg/dl (8.4-10.2); Carbon Dioxide 20 mmol/L (22-30); Chloride 110 mmol/L (98-107); Estimated Creatinine Clearance 40 ml/min; Glucose 107 mg/dl (70-99); Potassium 4.3 mmol/L (3.5-5.1); Sodium 142 mmol/L (135-145); Total Bilirubin 0.6 mg/dl (0.2-1.3); Total Protein 5.8 g/dl (6.3-8.2); eGFR 45.78
[2024-08-25 07:24] LABS: TSH Reflex To Free T4 1.16 uIU/ml (0.47-4.68)
[2024-08-25 07:30] VITALS: BP 119/74
[2024-08-25 07:43] LABS: Vitamin B12 473 pg/ml (239-931)
--- NOTE | 2024-08-25 08:31 | W.PN.HOSP.TC ---
Today's Communication/Plan
-
Discharge tomorrow
Assessment / Plan
Assessment / Plan
HPI: 73-year-old male brought in by family complaining of urinary frequency with burning for the past 5 months. He also reports he normally has a bowel movement daily but a change to every other day for the past month and he was worried. He does
not typically go to a doctor per his Lynne. She states that he went once in October of this year and then on 08/20/[address] Viktor Arthur He had outpatient labs done by [facility] with urine culture showing Enterococcus faecalis
that is pansensitive. His creat in October was 1.44 his creatinine on 08/20/2024 was 2.55 with bun of 60 and his PSA was 14.1 according to his he does not go to physicians.
#Acute urinary retention
#BPH with elvated PSA
Started on Flomax and Proscar
Appreciate urology input, plans for discharge with Floyd, follow-up in the office in 2-3 weeks for void trial
Creatinine trending down, continue to monitor
Avoid nephrotoxic drugs/NSAIDs
#Acute urinary tract infection
08/20/24 urine cultures growing Enterococcus
Urine cultures here growing pansensitive Enterococcus
Change Unasyn to amoxicillin 500 mg 3 times daily
#Obstructive uropathy
#Acute kidney injury
Creatinine improved, continue to monitor
No nephrotoxic drugs/NSAIDs
#Hematuria post Floyd insertion, traumatic
Resolved, resume Eliquis 5 mg twice a day 08/25
#Atrial flutter/fib, unknown type
History of AVR
Continue metoprolol succinate
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
Seen by cardiology here, can permanently discontinue aspirin
Resumed Eliquis 5 mg twice a day 08/25
Obtain records from [place], Dr. Mata
# Depression
reports many stressors in patient's life
TSH/B12 normal
Offered starting patient on Lexapro, he declined
Recommend follow-up with PCP for assessment
DVT prophylaxis�Eliquis
Full code
Updated on phone 08/25
Total time spent to see the patient on the floor, examine the patient, review data and lab results, discuss treatment plan with patient, nursing staff around 50 minutes.
Physical Exam
General: No acute distress
HEENT: Normocephalic, Atraumatic, EOMI, MMM
Respiratory: Clear to Auscultation bilaterally
Cardiac: Normal S1/S2, Regular Rate and Rhythm
GI: Soft, Nontender, Nondistended, Normal Bowel Sounds
Extremities: No Clubbing, Cyanosis, or Edema
: floyd w/ tea colored urine
Neuro: Nonfocal/Grossly Intact
Psych: Calm, Cooperative
Derm: No Visible lesions
Anticipated Discharge: Within 24 hours
Subjective/Interval History
-
Date of Service: August 25, 2024
Patient complains of constipation. He denies pain. He does admit to being sad and depressed. No nausea, no vomiting. No fever.
Objective Data
-
Labs:
Laboratory Results
08/25/24
06:07
WBC 9.4
Hgb 10.8 L
Hct 34.1 L
Plt Count 252
Sodium 142
Potassium 4.3
Chloride 110 H
Carbon Dioxide 20 L
BUN 32 H
Creatinine 1.6 H
Glucose 107 H
Calcium 8.2 L
Total Bilirubin 0.6
AST 15 L
ALT 12
Alkaline Phosphatase 36 L
Vital Signs:
Vital Signs
Temp Pulse Resp BP Pulse Ox
98.1 F 62 16 119/74 96
08/25/24 07:30 08/25/24 07:30 08/25/24 07:30 08/25/24 07:30 11/09/24 07:30
I&O
08/24/24 08/25/24 08/26/24
06:59 06:59 06:59
Intake Total 2280 / 2280
Output Total 1225 / 1225 2275 / 2275
Balance -1225 / -1225
[2024-08-25] MEDS: PROSCAR 5 MG PO (08:40)
[2024-08-25] MEDS: FLOMAX 0.4 MG PO (08:40)
[2024-08-25] MEDS: NSS 1000 IV (09:45)
[2024-08-25] MEDS: ELIQUIS 5 MG PO (10:57)
[2024-08-25] MEDS: SENOKOT-S 2 TABLET PO (10:57)
--- NOTE | 2024-08-25 11:24 | W.PN.URO.CBU ---
Today's Communication / Plan
-
Continue antibiotic
Discharge with floyd in place
Follow up with Dr. Landeros at discharge
Assessment / Plan
-
73M with acute urinary retention with bilateral hydronephrosis and SAMPSON
Recent enterococcus UTI and elevated PSA to 14
Hematuria after floyd placement
- Hematuria resolved. Okay to restart anticoagulation
- Urine cultures pending final sens. Recommend total two week course of antibiotic for complicated enterococcal UTI
- Continue Flomax and finasteride at discharge
- SAMPSON resolving with floyd in place
- Maintain floyd at discharge. Trial of void in 2-3 weeks and outpatient follow up with Dr. Landeros for further discussion of urinary retention and elevated PSA
Diagnosis
-
Date of Service: August 25, 2024
-
Patient Diagnosis:
Urinary retention
Hydronephrosis
SAMPSON
Pelvic kidney
Elevated PSA
Post Op Day:
Subjective
-
Hematuria resolved
Tolerating floyd
Objective
-
Vital Signs
Temp Pulse Resp BP Pulse Ox
98.1 F 62 16 119/74 96
08/25/24 07:30 08/25/24 07:30 08/25/24 07:30 08/25/24 07:30 08/25/24 07:30
Intake and Output
08/24/24 08/25/24 08/26/24
06:59 06:59 06:59
Intake Total 2280 / 2280
Output Total 1225 / 1225 2274 / 2274
Balance -1225 / -1225 / 5
Intake:
Oral fluids 1080 / 1080
IV fluids (Total) 1100 / 1100
IV piggybacks 100 / 100
Output:
Urine, Floyd 1225 / 1225 9123 / 2274
Laboratory Results
08/25/24 06:07
08/25/24 06:07
Physical Exam
-
General - well developed, well nourished, no acute distress
Chest - clear
Abdomen - soft, non-tender
-floyd in place, clear yellow urine
--- NOTE | 2024-08-25 14:38 | W.PN.HOSP.TC ---
Today's Communication/Plan
-
see bold
Assessment / Plan
Assessment / Plan
HPI: 73-year-old male brought in by family complaining of urinary frequency with burning for the past 5 months. He also reports he normally has a bowel movement daily but a change to every other day for the past month and he was worried. He does
not typically go to a doctor per his Lynne. She states that he went once in October of this year and then on 08/20/[address] Viktor Arthur He had outpatient labs done by [facility] with urine culture showing Enterococcus faecalis
that is pansensitive. His creat in October was 1.44 his creatinine on 08/20/2024 was 2.55 with bun of 60 and his PSA was 14.1 according to his he does not go to physicians.
#Acute urinary retention
#BPH with elvated PSA
Started on Flomax and Proscar - continue upon dc
Appreciate urology input, plans for discharge with Floyd, follow-up in the office in 2-3 weeks for void trial w/ Dr. Landeros
Creatinine trending down, continue to monitor
Avoid nephrotoxic drugs/NSAIDs
#Acute urinary tract infection
08/20/24 urine cultures growing Enterococcus
Urine cultures here growing pansensitive Enterococcus
Change Unasyn to amoxicillin 500 mg 3 times daily, continue to compete 14 day course
#Obstructive uropathy
#Acute kidney injury
Creatinine improved, continue to monitor
No nephrotoxic drugs/NSAIDs
#Hematuria post Floyd insertion, traumatic
Urology recommends holding Eliquis for 3 days, can resume Aug 30
#Atrial flutter/fib, unknown type
History of AVR
Continue metoprolol succinate
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
Seen by cardiology here, can permanently discontinue aspirin
Resumed Eliquis 5 mg twice a day 08/25
Obtain records from [place], Dr. Mata
# Depression
reports many stressors in patient's life
TSH/B12 normal
Start Lexapro 10 mg daily, check QTc
Recommend follow-up with PCP for assessment
DVT prophylaxis�Eliquis
Full code
Updated on phone 08/26
Physical Exam
General: No acute distress
HEENT: Normocephalic, Atraumatic, EOMI, MMM
Respiratory: Clear to Auscultation bilaterally
Cardiac: Normal S1/S2, Regular Rate and Rhythm
GI: Soft, Nontender, Nondistended, Normal Bowel Sounds
Extremities: No Clubbing, Cyanosis, or Edema
: floyd w/ tea colored urine
Neuro: Nonfocal/Grossly Intact
Psych: Calm, Cooperative
Derm: Hyperpigmentation of the shins reflective of chronic venous stasis dermatitis
Anticipated Discharge: Today
Subjective/Interval History
-
Date of Service: August 25, 2024
Hematuria resolved. No CP/SOB/palp. Still depressed. No fever, no vomiting.
Objective Data
-
Labs:
Laboratory Results
08/25/24
06:07
WBC 9.4
Hgb 10.8 L
Hct 34.1 L
Plt Count 252
Sodium 142
Potassium 4.3
Chloride 110 H
Carbon Dioxide 20 L
BUN 32 H
Creatinine 1.6 H
Glucose 107 H
Calcium 8.2 L
Total Bilirubin 0.6
AST 15 L
ALT 12
Alkaline Phosphatase 36 L
Vital Signs:
Vital Signs
Temp Pulse Resp BP Pulse Ox
98.1 F 62 16 119/74 96
08/25/24 07:30 08/25/24 07:30 08/25/24 07:30 08/25/24 07:30 08/25/24 07:30
I&O
08/24/24 08/25/24 08/26/24
06:59 06:59 06:59
Intake Total 2280 / 2280
Output Total 1225 / 1225 2275 / 2275
Balance -1225 / -1225
--- NOTE | 2024-08-25 14:40 | W.PN.UPDATE ---
Update Note
Progress Note Update
Patient started having hematuria again after receiving 1 dose of Eliquis at 11 AM. Will hold.
[2024-08-25 14:49] VITALS: O2SAT 96
[2024-08-25 15:11] VITALS: BP 131/98
[2024-08-25] MEDS: AMOXIL 500 MG PO ×2 (17:00→22:04)
[2024-08-25] MEDS: PROCARDIA XL (EXTENDED RELEASE) 60 MG PO (17:00)
[2024-08-25] MEDS: TOPROL XL 75 MG PO (17:00)
[2024-08-25] MEDS: SENOKOT-S PO (20:11)
[2024-08-25] MEDS: MIRALAX PO (20:11)
[2024-08-25 23:00] VITALS: BP 96/62
[2024-08-26 06:34] LABS: % Basophils 0.6 % (0-2); % Eosinophils 2.1 % (0-6); % Immature Granulocytes 1.3 % (0-0.5); % Lymphocytes 11.1 % (20.5-51.1); % Monocytes 6.6 % (1.7-9.3); % Neutrophils 78.3 % (42.2-75.2); Absolute Basophils 0.1 10^3/uL (0-0.2); Absolute Eosinophils 0.2 10^3/uL (0-0.7); Absolute Immature Granulocytes 0.2 10^3/uL (0-0.05); Absolute Lymphocytes 1.3 10^3/uL (1.2-3.4); Absolute Monocytes 0.8 10^3/uL (0.1-0.6); Absolute Neutrophils 8.9 10^3/uL (1.4-6.5); Hematocrit 34.9 % (39.0-52.0); Hemoglobin 11.3 g/dL (13.0-18.0); Mean Corp Hgb Conc. 32.4 g/dL (33.0-37.0); Mean Corpuscular Hgb 26.5 pg (27.0-31.0); Mean Corpuscular Volume 81.9 fL (80.0-94.0); Mean Platelet Volume 8.2 fL (7.4-10.4); Nucleated Red Blood Cells % 0 % (-); Platelet Count 273 10^3/uL (130-400); Red Blood Cell Count 4.26 10^6/uL (4.70-6.10); Red Cell Dist. Width 14.6 % (11.5-14.5); White Blood Cell Count 11.4 10^3/uL (4.8-10.8)
[2024-08-26 06:57] LABS: Blood Urea Nitrogen 23 mg/dl (9-20); Calcium 8.7 mg/dl (8.4-10.2); Carbon Dioxide 21 mmol/L (22-30); Chloride 108 mmol/L (98-107); Estimated Creatinine Clearance 42 ml/min; Glucose 99 mg/dl (70-99); Potassium 4.3 mmol/L (3.5-5.1); Sodium 142 mmol/L (135-145); eGFR 49.47
[2024-08-26] MEDS: FLOMAX 0.4 MG PO (07:51)
[2024-08-26] MEDS: SENOKOT-S 2 TABLET PO (07:51)
[2024-08-26] MEDS: MIRALAX 17 GRAMS PO (07:51)
[2024-08-26] MEDS: PROSCAR 5 MG PO (07:51)
[2024-08-26] MEDS: AMOXIL 500 MG PO (07:51)
[2024-08-26 07:56] VITALS: BP 132/80
--- NOTE | 2024-08-26 09:05 | W.PN.HOSP.TC ---
Today's Communication/Plan
-
Discharge today
Assessment / Plan
Assessment / Plan
HPI: 73-year-old male brought in by family complaining of urinary frequency with burning for the past 5 months. He also reports he normally has a bowel movement daily but a change to every other day for the past month and he was worried. He does
not typically go to a doctor per his Lynne. She states that he went once in October of this year and then on 08/20/[address] Viktor Arthur He had outpatient labs done by [facility] with urine culture showing Enterococcus faecalis
that is pansensitive. His creat in October was 1.44 his creatinine on 08/20/2024 was 2.55 with bun of 60 and his PSA was 14.1 according to his he does not go to physicians.
#Acute urinary retention
#BPH with elvated PSA
Started on Flomax and Proscar - continue upon dc
Appreciate urology input, plans for discharge with Floyd, follow-up in the office in 2-3 weeks for void trial w/ Dr. Landeros
Creatinine trending down, continue to monitor
Avoid nephrotoxic drugs/NSAIDs
Stable for discharge today
#Acute urinary tract infection
08/20/24 urine cultures growing Enterococcus
Urine cultures here growing pansensitive Enterococcus
Change Unasyn to amoxicillin 500 mg 3 times daily, continue to compete 14 day course
#Obstructive uropathy
#Acute kidney injury
Creatinine improved, continue to monitor
No nephrotoxic drugs/NSAIDs
#Hematuria post Floyd insertion, traumatic
Urology recommends holding Eliquis for 3 days, can resume Aug 29
#Atrial flutter/fib, unknown type
History of AVR
Continue metoprolol succinate
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
Seen by cardiology here, can permanently discontinue aspirin
Urology recommends holding Eliquis for 3 days, can resume Aug 29
Obtain records from Dr. Esperanza Guerra
# Depression
reports many stressors in patient's life
TSH/B12 normal
Start Lexapro 10 mg daily 08/26, check QTc
Recommend follow-up with PCP for assessment
DVT prophylaxis�Eliquis
Full code
Updated on phone 08/26
Physical Exam
General: No acute distress
HEENT: Normocephalic, Atraumatic, EOMI, MMM
Respiratory: Clear to Auscultation bilaterally
Cardiac: Normal S1/S2, Regular Rate and Rhythm
GI: Soft, Nontender, Nondistended, Normal Bowel Sounds
Extremities: No Clubbing, Cyanosis, or Edema
: floyd w/ tea colored urine
Neuro: Nonfocal/Grossly Intact
Psych: Calm, Cooperative
Derm: Hyperpigmentation of the shins reflective of chronic venous stasis dermatitis
Anticipated Discharge: Today
Subjective/Interval History
-
Date of Service: August 26, 2024
Objective Data
-
Labs:
Laboratory Results
08/26/24
06:09
WBC 11.4 H
Hgb 11.3 L
Hct 34.9 L
Plt Count 273
Sodium 142
Potassium 4.3
Chloride 108 H
Carbon Dioxide 21 L
BUN 23 H
Creatinine 1.5 H
Glucose 99
Calcium 8.7
Vital Signs:
Vital Signs
Temp Pulse Resp BP Pulse Ox
98.3 F 66 14 132/80 96
08/26/24 07:56 08/26/24 07:56 08/26/24 07:56 08/26/24 07:56 08/26/24 07:56
I&O
08/25/24 08/26/24 08/27/24
06:59 06:59 06:59
Intake Total 2280 / 2280 2760 / 2760
Output Total 2275 / 2275 2950 / 2950
Balance -190 / -190
[2024-08-26] MEDS: LEXAPRO 10 MG PO (09:57)
--- NOTE | 2024-08-26 10:24 | W.PN.URO.CBU ---
Today's Communication / Plan
-
Stable for discharge from standpoint with floyd in place
Hold Eliquis additional 3-4 days
Continue antibiotic for enterococcus UTI
Assessment / Plan
-
73M with acute urinary retention with bilateral hydronephrosis and SAMPSON
Recent enterococcus UTI and elevated PSA to 14
Hematuria after floyd placement
- Hematuria resolved. Given some persistent mild bleeding when straining with BM, would recommend additional 3-4 days of holding Eliquis before resuming
- Urine cultures pending final sens. Recommend total two week course of antibiotic for complicated enterococcal UTI
- Continue Flomax and finasteride at discharge
- SAMPSON resolving with floyd in place
- Maintain floyd at discharge. Trial of void in 2-3 weeks and outpatient follow up with Dr. Landeros for further discussion of urinary retention and elevated PSA
Diagnosis
-
Date of Service: August 26, 2024
-
Patient Diagnosis:
Urinary retention
Hydronephrosis
SAMPSON
Pelvic kidney
Elevated PSA
Post Op Day:
Subjective
-
Some hematuria yesterday afternoon after restarting eliquis
resolved since
Objective
-
Vital Signs
Temp Pulse Resp BP Pulse Ox
98.3 F 66 14 132/80 96
08/26/24 07:56 08/26/24 07:56 08/26/24 07:56 08/26/24 07:56 08/26/24 07:56
Intake and Output
08/25/24 08/26/24 08/27/24
06:59 06:59 06:59
Intake Total 2280 / 2280 2760 / 2760
Output Total 2275 / 2275 2950 / 2950
Balance 5 / 5 -190 / -190
Intake:
Oral fluids 1080 / 1080 1440 / 1440
IV fluids (Total) 1100 / 1100 1320 / 1320
IV piggybacks 100 / 100
Output:
Urine, Floyd 2275 / 2275 2950 / 2950
Laboratory Results
08/26/24 06:09
08/26/24 06:09
Physical Exam
-
General - well developed, well nourished, no acute distress
Chest - unlabored
Abdomen - soft, non-tender
Floyd in place clear yellow, some debris in tubing
--- NOTE | 2024-08-26 13:55 | W.DCSUMMARY ---
Discharge Summary
Discharge Data
Date of Admission: 08/23/24
Date of Discharge: 08/26/24
-
Pending Results: No
Hospital Course
Discharge diagnosis:
Acute urinary tract infection
Acute urinary retention
Hematuria
Benign prostatic hypertrophy with elevated prostate-specific antigen
Obstructive uropathy
Acute kidney injury
Atrial fibrillation on Eliquis
Depression
Consults: Urology, cardiology
Hospital course:
73-year-old male with a past medical history of atrial fibrillation on Eliquis presented with a 5-month history of dysuria and urinary frequency/urgency, was found to have acute urinary retention as well as an acute urinary tract infection. Patient
had a Bernard inserted in the ER. Patient had hematuria secondary to the trauma. His Eliquis was held. He was seen in conjunction with urology. Urology recommends starting and continuing Flomax/Proscar. Urology also recommends discharge with a
Bernard.
After 2 days, his hematuria resolved, and he received 1 dose of Eliquis. His hematuria returned. His Eliquis was discontinued. Urology recommends holding his Eliquis for 3 more days, which can then be resumed on 08/29/2024.
Patient had obstructive uropathy and acute kidney injury. His creatinine improved with Bernard insertion. He has been counseled to avoid NSAIDs.
Patient was seen in conjunction with cardiology, as he wished to transfer his care from [place] to [place]. Cardiology recommends discontinuing aspirin 81 mg daily. Cardiology recommends resuming Eliquis when cleared by urology.
Patient presented with depression, and was started on Lexapro 10 mg daily. He can continue this dose upon discharge, his PCP can titrate as needed.
Patient is medically stable and cleared by urology for discharge. He needs to follow-up with his primary care doctor in 1 week, urology in the office in 2 weeks, and cardiology in the office in 2-3 weeks.
Disposition: Home with home care
Discharge planning: Required 48 minutes
Discharge Plan
-
Patient Disposition: Home (Routine Discharge)
Discharge Diagnosis/Procedures: Acute urinary tract infection, acute urinary retention, benign prostatic hypertrophy with elevated prostate specific antigen, obstructive uropathy, acute kidney injury, hematuria, atrial flutter/fibrillation on
Eliquis, depression
Condition: Good
Diet: Low Sodium
Activity: As tolerated
Driving Restrictions: As prior to admission
Activity Restrictions/Additional Instructions:
Urology recommends holding your Eliquis for 3 days, can resume 08/29/2024. Cardiology recommends stopping aspirin.
Please avoid all [id number] NSAID medications such as ibuprofen, naproxen, Aleve, Motrin, Advil. These medications will worsen your kidney function.
Please follow-up with your primary care doctor 1 week, and urology in the office in 2-3 weeks.
Referrals:
[facility]- [facility] [Provider Group]
Viktor Arthur DO [Family Provider] - in one week
Howard Landeros Jr., MD [Active] - in two to three weeks
Prescriptions:
New
amoxicillin 500 mg Capsule
500 mg PO TID 11 Days Qty: 33 0RF
sennosides-docusate sodium 8.6-50 mg Tablet
2 tab PO HS 30 Days Qty: 60 0RF
tamsulosin 0.4 mg Capsule
0.4 mg PO DAILY Qty: 30 0RF
finasteride 5 mg Tablet
5 mg PO DAILY Qty: 30 0RF
escitalopram oxalate 10 mg Tablet
10 mg PO DAILY Qty: 30 0RF
Continued
metoprolol succinate 50 mg Tablet Extended Release 24 Hr
75 mg PO QPM
nifedipine 60 mg Tablet Extended Release
60 mg PO QPM
calcium carb-mag ox-zinc gluc 333-133-5 mg Tablet
1 tab PO QPM
Held
apixaban 5 mg Tablet
5 mg PO BID
Hold Instructions: Resume on 08/29/24.
Discontinued
aspirin 81 mg Tablet,Chewable
81 mg PO QPM
Discharge Orders:
Discharge Patient (As Directed); Ordered 08/26/24
Ordered By: Chandra Lincoln
Discharge Date and Time
Print Language: MONGOLIAN
[2024-08-26 15:05] VITALS: BP 136/91
== END 2024-08-26 17:00 | disposition home health service (06) | DRG 683 ==
LOC: 4 EAST ACU 23:33
PROVIDERS: Clinical Nurse Specialist Family Health; Emergency Medicine; ADMITTING PHYSICIAN Internal Medicine; ATTENDING PHYSICIAN Family Medicine; CONSULT PHYSICIAN Internal Medicine; CONSULT PHYSICIAN Specialist; EMERGENCY PHYSICIAN Emergency Medicine; FAMILY PHYSICIAN Family Medicine
DX: N17.9 Acute kidney failure, unspecified (principal); I48.92 Unspecified atrial flutter; N39.0 Urinary tract infection, site not specified; T83.83XA Hemorrhage due to genitourinary prosthetic devices, implants and grafts, initial encounter; B95.2 Enterococcus as the cause of diseases classified elsewhere; N13.30 Unspecified hydronephrosis; N40.1 Benign prostatic hyperplasia with lower urinary tract symptoms; R33.8 Other retention of urine; I48.91 Unspecified atrial fibrillation; Z79.01 Long term (current) use of anticoagulants; F32.A Depression, unspecified; F41.9 Anxiety disorder, unspecified; R79.89 Other specified abnormal findings of blood chemistry; Z87.442 Personal history of urinary calculi; Z95.2 Presence of prosthetic heart valve; Z82.49 Family history of ischemic heart disease and other diseases of the circulatory system; K59.00 Constipation, unspecified; Z79.82 Long term (current) use of aspirin; N18.9 Chronic kidney disease, unspecified; I12.9 Hypertensive chronic kidney disease with stage 1 through stage 4 chronic kidney disease, or unspecified chronic kidney disease; R73.03 Prediabetes; Z79.899 Other long term (current) drug therapy; N32.0 Bladder-neck obstruction; D50.9 Iron deficiency anemia, unspecified; I25.10 Atherosclerotic heart disease of native coronary artery without angina pectoris; K76.89 Other specified diseases of liver; K80.20 Calculus of gallbladder without cholecystitis without obstruction; Y84.6 Urinary catheterization as the cause of abnormal reaction of the patient, or of later complication, without mention of misadventure at the time of the procedure
CPT/HCPCS: 51702; 51798; 74176; 80048; 80053; 81003; 81015; 82607; 82728; 82746; 83540; 83550; 83605; 84443; 85025; 87077; 87086; 87186; 93005; 96365; 96375; 97163; 99285

== ENCOUNTER → 2024-11-21 13:34 | Outpatient (REF) | payer OTHER, SELFPAY | LOC: RAD 13:34 | PROVIDERS: ATTENDING PHYSICIAN Specialist | DX: R33.9 Retention of urine, unspecified (principal) | CPT/HCPCS: 76775 ==

== ENCOUNTER 2024-12-13 05:59 | Day surgery (SDC) | payer OTHER, SELFPAY ==
[2024-12-05 11:15] LABS: Hematocrit 42.1 % (39.0-52.0); Hemoglobin 13.2 g/dL (13.0-18.0); Mean Corp Hgb Conc. 31.4 g/dL (33.0-37.0); Mean Corpuscular Volume 86.1 fL (80.0-94.0); Mean Platelet Volume 9.2 fL (7.4-10.4); Platelet Count 278 10^3/uL (130-400); Red Blood Cell Count 4.89 10^6/uL (4.70-6.10); Red Cell Dist. Width 14.8 % (11.5-14.5); White Blood Cell Count 10.6 10^3/uL (4.8-10.8)
[2024-12-05 11:25] LABS: INR 1.22; PT 15.9 Sec (11.4-14.6)
[2024-12-05 11:26] LABS: APTT 32.5 Sec (23.4-35.0)
[2024-12-05 11:29] LABS: Urine Albumin 2+ (Neg - Trace); Urine Bilirubin Negative (Negative); Urine Character Cloudy (Clear); Urine Color Yellow; Urine Glucose Negative (Negative); Urine Ketone Negative (Negative); Urine Leukocyte 3+ (Negative); Urine Nitrite Negative (Negative); Urine Occult Blood 3+ (Negative); Urine Urobilinogen Negative (Neg - 1+); Urine pH 6.5 (5.0-9.0)
[2024-12-05 13:17] LABS: Blood Urea Nitrogen 36 mg/dl (9-20); Carbon Dioxide 24 mmol/L (22-30); Chloride 106 mmol/L (98-107); Glucose 97 mg/dl (70-99); Potassium 4.5 mmol/L (3.5-5.1); Sodium 143 mmol/L (135-145); eGFR 37.02
[2024-12-05 13:40] VITALS: BMI 31.0
[2024-12-05 14:13] LABS: Urine Amorphous Seen; Urine Squamous Cell 0-2 /LPF (Few); Urine White Cell >100 /HPF (0-5)
[2024-12-05 14:14] LABS: Urine Bacteria Few (Negative)
--- NOTE | 2024-12-07 14:34 | PTCARENOTE ---
Abnormal ECG 12/05/24, reviewed by Dr Malin, no further intervention requested.
[2024-12-13] VITALS (11 sets, daily range): BP systolic 100–143; BP diastolic 56–92; BMI 31.0
[2024-12-13] MEDS: NORMOSOL-R/PLASMALYTE-A 1000 IV (06:30)
[2024-12-13] MEDS: DILAUDID 0.25 MG IV (08:56)
[2024-12-13] MEDS: DETROL LA 4 MG PO (10:02)
[2024-12-13 10:17] LABS: Urine Albumin 2+ (Neg - Trace); Urine Bilirubin Negative (Negative); Urine Character Clear (Clear); Urine Color Yellow; Urine Glucose Negative (Negative); Urine Ketone Negative (Negative); Urine Leukocyte 3+ (Negative); Urine Nitrite Negative (Negative); Urine Occult Blood 4+ (Negative); Urine Urobilinogen Negative (Neg - 1+); Urine pH 6.5 (5.0-9.0)
[2024-12-13 13:05] LABS: Urine Amorphous Seen; Urine Squamous Cell 0-2 /LPF (Few)
[2024-12-13 13:06] LABS: Urine White Cell 26-30 /HPF (0-5)
[2024-12-13 13:07] LABS: Urine Red Blood Cell 21-25 /HPF (0-2)
== END 2024-12-13 11:30 | disposition home or self-care (01) ==
LOC: SDS 05:59
PROVIDERS: ATTENDING PHYSICIAN Specialist; FAMILY PHYSICIAN Family Medicine; OTHER PHYSICIAN Internal Medicine
DX: N40.1 Benign prostatic hyperplasia with lower urinary tract symptoms (principal); N30.90 Cystitis, unspecified without hematuria; N32.0 Bladder-neck obstruction; N13.30 Unspecified hydronephrosis; N32.89 Other specified disorders of bladder; R97.20 Elevated prostate specific antigen [PSA]; R31.9 Hematuria, unspecified; Q63.2 Ectopic kidney; N41.0 Acute prostatitis
CPT/HCPCS: 52224; 55700; 88305; 36415; 74420; 76000; 76998; 80048; 81003; 81015; 85027; 85610; 85730; 87086; 93005; C1758; J1580

== ENCOUNTER → 2024-12-19 11:14 | Outpatient (REF) | payer OTHER, SELFPAY | LOC: HWRCS 11:14 | PROVIDERS: ATTENDING PHYSICIAN Internal Medicine; FAMILY PHYSICIAN Family Medicine | DX: I48.21 Permanent atrial fibrillation (principal); I34.0 Nonrheumatic mitral (valve) insufficiency; I35.1 Nonrheumatic aortic (valve) insufficiency; I10 Essential (primary) hypertension | CPT/HCPCS: 93306 ==

== ENCOUNTER 2025-01-15 09:29 | Inpatient (IN) | payer OTHER, SELFPAY ==
[2025-01-15] VITALS (21 sets, daily range): BP systolic 83–148; BP diastolic 59–83; BMI 29.7
[2025-01-15] MEDS: NORMOSOL-R/PLASMALYTE-A 1000 IV (06:44)
--- NOTE | 2025-01-15 08:35 | W.PN.ADMIT ---
Progress Note - Admit
Progress Note - Admit
pt s/p TURP
admit for hematuria requiring cbi
[2025-01-15 09:02] LABS: Hematocrit 39.4 % (39.0-52.0); Hemoglobin 12.9 g/dL (13.0-18.0); Mean Corp Hgb Conc. 32.7 g/dL (33.0-37.0); Mean Corpuscular Hgb 27.2 pg (27.0-31.0); Mean Corpuscular Volume 83.1 fL (80.0-94.0); Platelet Count 198 10^3/uL (130-400); Red Blood Cell Count 4.74 10^6/uL (4.70-6.10); Red Cell Dist. Width 14.7 % (11.5-14.5)
[2025-01-15 09:10] LABS: Blood Urea Nitrogen 42 mg/dl (9-20); Calcium 8.5 mg/dl (8.4-10.2); Carbon Dioxide 25 mmol/L (22-30); Chloride 107 mmol/L (98-107); Estimated Creatinine Clearance 43 ml/min; Glucose 122 mg/dl (70-99); Sodium 141 mmol/L (135-145); eGFR 49.16
[2025-01-15] MEDS: NSS 1000 IV ×2 (09:30→21:56)
[2025-01-15] MEDS: DILAUDID 0.25 MG IV (09:37)
[2025-01-15] MEDS: TOPROL XL PO ×2 (18:33)
[2025-01-15] MEDS: PROCARDIA XL (EXTENDED RELEASE) PO (18:33)
[2025-01-15] MEDS: VIBRAMYCIN 100 MG PO (19:50)
[2025-01-15] MEDS: COLACE PO (21:18)
[2025-01-16 03:25] VITALS: BP 141/94
[2025-01-16 07:18] VITALS: BP 164/95
--- NOTE | 2025-01-16 07:28 | W.PN.URO.CBU ---
Today's Communication / Plan
-
routine post TURP care
Assessment / Plan
-
s/p TURP
wean CBI
UOOB/regular diet
likely discharge tomorrow with floyd
Diagnosis
-
Date of Service: January 16, 2025
-
Patient Diagnosis:
bph
urinary retention
hydro
right pelvic kidney
Post Op Day:
TURP 01/15
Subjective
-
pt comfortable
urine clear on light drip CBI
Objective
-
Vital Signs
Temp Pulse Resp BP Pulse Ox
97.6 F 82 17 141/94 96
01/16/25 03:25 01/16/25 03:25 01/16/25 03:25 01/16/25 03:25 01/16/25 03:25
Intake and Output
01/15/25 01/16/25 01/17/25
06:59 06:59 06:59
Intake Total 2470 / 2470
Output Total 2500 / 2500
Balance -30 / -30
Intake:
Oral fluids 880 / 880
IV fluids (Total) 1590 / 1590
normosol 200 / 200
nss 430 / 430
Output:
True Urine Output from CBI 1999 / 1999
True urine output from hand 500 / 500
irrigation
Review of Systems
-
Constitutional: No Symptoms
Respiratory: No Symptoms
Cardiac: No Symptoms
Physical Exam
-
General - no acute distress
Abdomen - soft, non-tender
Genitalia - floyd in place
[2025-01-16 07:41] LABS: Hemoglobin 12.4 g/dL (13.0-18.0); Mean Corp Hgb Conc. 32.6 g/dL (33.0-37.0); Mean Corpuscular Hgb 27.1 pg (27.0-31.0); Mean Corpuscular Volume 83.2 fL (80.0-94.0); Mean Platelet Volume 9.1 fL (7.4-10.4); Platelet Count 186 10^3/uL (130-400); Red Blood Cell Count 4.57 10^6/uL (4.70-6.10); Red Cell Dist. Width 14.6 % (11.5-14.5); White Blood Cell Count 10.4 10^3/uL (4.8-10.8)
[2025-01-16] MEDS: VIBRAMYCIN 100 MG PO ×2 (07:57→19:22)
[2025-01-16] MEDS: LASIX 20 MG PO (07:57)
[2025-01-16] MEDS: FLOMAX 0.4 MG PO (07:57)
[2025-01-16] MEDS: LEXAPRO 10 MG PO (07:58)
[2025-01-16] MEDS: PROSCAR 5 MG PO (07:58)
[2025-01-16] MEDS: COLACE 100 MG PO ×2 (07:58→19:22)
[2025-01-16 08:21] LABS: Blood Urea Nitrogen 27 mg/dl (9-20); Calcium 8.5 mg/dl (8.4-10.2); Carbon Dioxide 25 mmol/L (22-30); Chloride 106 mmol/L (98-107); Estimated Creatinine Clearance 54 ml/min; Glucose 101 mg/dl (70-99); Potassium 4.5 mmol/L (3.5-5.1); Sodium 140 mmol/L (135-145); eGFR > 60.00
--- NOTE | 2025-01-16 09:49 | CM ---
Patient seen at bedside with physician. Patient stated that he lives with his in an apartment on the 3rd floor of the building. Both stairs and elevator are available. Patient PCP is Dr. Arthur and he uses the [facility] in [place] for
pharmacy needs. Patient for discharge home with mariel and requested [facility]. referral sent to liaison via tt. CM will continue to follow for discharge planning needs.
Plan; home with [facility]; pending acceptance.
[2025-01-16 11:12] VITALS: BP 121/74
--- NOTE | 2025-01-16 14:35 | VNURNOTE ---
Registered Nurse Practitioner met with patient to discuss [facility] nurse/therapy, visits, schedule and homebound status. Patient is agreeable and understands that visits at home will be 2-3 x per week to assess and teach medical management.
[facility] contact information provided. Patient is aware that [facility] will contact them for start of care after discharge from .
[facility] referral completed in [facility].
[2025-01-16 15:15] VITALS: BP 116/75
[2025-01-16] MEDS: PROCARDIA XL (EXTENDED RELEASE) 60 MG PO (17:26)
[2025-01-16] MEDS: TOPROL XL 50 MG PO (17:27)
[2025-01-16] MEDS: TOPROL XL 25 MG PO (17:27)
[2025-01-16 23:28] VITALS: BP 107/64
[2025-01-17 07:32] VITALS: BP 145/82
--- NOTE | 2025-01-17 08:22 | W.PN.URO.CBU ---
Today's Communication / Plan
-
discharge
Assessment / Plan
-
s/p TURP
urine clear
cr normalized
home today with floyd- continue to hold eliquis
cath out on tuesday for TOV
Diagnosis
-
Date of Service: January 17, 2025
-
Patient Diagnosis:
bph
urinary retention
hydro
right pelvic kidney
Post Op Day:
TURP 01/15
Subjective
-
pt stable
cbi off for 24hrs- urine clear to peach
cr down to 1.2 yesterday
Objective
-
Vital Signs
Temp Pulse Resp BP Pulse Ox
98.0 F 67 16 107/64 93
01/16/25 23:28 01/16/25 23:28 01/16/25 23:28 01/16/25 23:28 01/16/25 23:28
Intake and Output
01/16/25 01/17/25 01/18/25
06:59 06:59 06:59
Intake Total 2470 / 2470 2280 / 2280
Output Total 2500 / 2500 1650 / 1650
Balance -30 / -30 630 / 630
Intake:
Oral fluids 880 / 880 2280 / 2280
IV fluids (Total) 1590 / 1590
normosol 200 / 200
nss 430 / 430
Output:
Urine, Floyd 1900 / 1900
True Urine Output from CBI 2000 / 1999 -375 / -375
True urine output from hand 500 / 500 125 / 125
irrigation
Laboratory Results
01/16/25 06:50
01/16/25 06:50
Review of Systems
-
Constitutional: No Symptoms
Respiratory: No Symptoms
Cardiac: No Symptoms
Abdomen/GI: No Symptoms
Physical Exam
-
General - no acute distress
Abdomen - soft, non-tender
Genitalia - floyd in place
--- NOTE | 2025-01-17 08:33 | W.DS.TRANS ---
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
-
Discharge Instructions:
Discharge Diagnosis/Procedures you had a transurethral resection of the
prostate
Diet No restrictions
Activity No strenuous activity
Additional Activity no lifting over 10lbs ro strenuous activity
Driving Restrictions Not until seen by your Dr
Bathing Restrictions OK to Shower
Wound Care expect some blood in urine and some blood around
catheter
Instructions:
Stand-Alone Forms:
Changes to Home Medications: No
Discharge Medications:
DC Medications w/original date entered in [employer]
apixaban 5 mg tablet 5 mg PO BID Blood Clot Prevention/Tx 08/23/24
metoprolol succinate 50 mg tablet,extended release 24 hr 75 mg PO QPM Blood Pressure 08/23/24
nifedipine 60 mg tablet,extended release 60 mg PO QPM Blood Pressure 08/23/24
escitalopram oxalate 10 mg tablet 10 mg PO DAILY #30 tabs 08/26/24
finasteride 5 mg tablet 5 mg PO DAILY #30 tabs 08/26/24
tamsulosin 0.4 mg capsule 0.4 mg PO DAILY #30 caps 08/26/24
furosemide 20 mg tablet 20 mg PO DAILY Fluid Retention/Swelling 12/06/24
doxycycline hyclate 100 mg capsule 100 mg PO BID #14 caps 01/17/25
Home Medication Changes
Pending Results: Yes
[2025-01-17] MEDS: LEXAPRO 10 MG PO (08:51)
[2025-01-17] MEDS: VIBRAMYCIN 100 MG PO (08:51)
[2025-01-17] MEDS: COLACE PO ×2 (08:51→08:55)
[2025-01-17] MEDS: LASIX 20 MG PO (08:51)
[2025-01-17] MEDS: FLOMAX 0.4 MG PO (08:51)
[2025-01-17] MEDS: PROSCAR 5 MG PO (08:51)
--- NOTE | 2025-01-17 10:03 | CM ---
Reviewed the chart notes and spoke with the patient at the bedside. IMM reviewed. The patient is for discharge to home today with [facility] services. Patient's spouse will provide the transportation. CM continues to be available to patient/family
and is monitoring medical plan for needs at discharge.
Plan: Discharge to home with VN services.
[2025-01-17 11:11] VITALS: BP 121/80
--- NOTE | 2025-01-17 12:44 | PTCARENOTE ---
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 Patient cleared for d/c. order for patient eliquis needed clarification. As per Dr. Ladneros he will address the resumption of eliquis on Tuesday.
--- NOTE | 2025-01-17 13:32 | VNURNOTE ---
Computator met with patient to discuss [facility] services after DC. Patient stated he does not feel he has a need for visiting nursing at discharge. Advised patient to follow up with MD if he feels his condition changes. CM notified.
== END 2025-01-17 14:12 | disposition home health service (06) | DRG 714 ==
LOC: 2 SOUTH 09:29
PROVIDERS: ADMITTING PHYSICIAN Specialist; FAMILY PHYSICIAN Family Medicine
PROC: 0VB08ZZ Excision of Prostate, Via Natural or Artificial Opening Endoscopic (ICD-10-PCS; 2025-01-15)
DX: N40.1 Benign prostatic hyperplasia with lower urinary tract symptoms (principal); N30.90 Cystitis, unspecified without hematuria
CPT/HCPCS: 88305; 80048; 85027; 88344

== ENCOUNTER → 2025-03-13 10:24 | Outpatient (REF) | payer OTHER, SELFPAY | LOC: RAD 10:24 | PROVIDERS: ATTENDING PHYSICIAN Specialist; FAMILY PHYSICIAN Family Medicine | DX: R33.9 Retention of urine, unspecified (principal) | CPT/HCPCS: 78708; A9539 ==

== ENCOUNTER 2025-09-17 15:43 | Emergency (ER) | payer OTHER, SELFPAY ==
[2025-09-17 18:56] VITALS: BMI 30.1
[2025-09-17 19:46] LABS: Hematocrit 40.9 % (39.0-52.0); Hemoglobin 12.9 g/dL (13.0-18.0); Mean Corp Hgb Conc. 31.5 g/dL (33.0-37.0); Mean Corpuscular Volume 80.8 fL (80.0-94.0); Nucleated Red Blood Cells % 0 % (-); Platelet Count 258 10^3/uL (130-400); Red Cell Dist. Width 17.9 % (11.5-14.5)
--- NOTE | 2025-09-17 20:03 | ED.GENMED ---
History of Present Illness
General
Chief Complaint: Breathing Problem
Source: patient and spouse
Time Seen by Provider: 09/17/25 18:39
History of Present Illness
History of Present Illness:
74-year-old male with a past medical history of atrial fibrillation, status post aortic valve repair, BPH presenting to the emergency department for evaluation of bilateral lower extremity edema that has been ongoing over the last few weeks,
noting that when patient sleeps she hears him wheezing but patient denies any chest pain, shortness of breath, cough or any other concerns. Patient attempted to make an appointment with his business office technician, Dr. Cerna, but was unable to get an
appointment until November. Patient does take 20 mg of Lasix with she reports good compliance with. He also follows with supervisor pipe joints, Dr. Banks and urology here. No fevers or infectious symptoms. Patient was recently transition from Eliquis
for his A-fib to Pradaxa
Past History
Past History
ED Past Medical History: Arrthythmia (Atrial fi), Psychiatric (Anxiety) and Other (Renal calculus)
ED Past Surgical History: Cardiac (Valve repair) and Urological
Social History
Tobacco: Non-smoker
Alcohol: None
Drug: None
Personal:
Living: with family
Review of Systems
Review of Systems
All Other Systems: ROS reviewed and negative except as documented in HPI and ROS
Phy Exam
Physical Exam
Physical Exam:
GENERAL: Alert , in no apparent distress
HEAD: Normocephalic atraumatic
EYE: conjunctiva clear
NECK: Supple
ENT: o/p clr, mmm.
CARDIAC: Irregularly irregular, systolic murmur LSB
LUNGS: Clear breath sounds bilaterally, no acute respiratory distress, no wheezes/rales/rhonchi
NEUROLOGICAL: Alert and oriented
SKIN: Warm and dry, skin intact.
MUSCULOSKELETAL: b/l 2+ pitting edema to the knees. Dusky appearance to skin bilateral LE however easily palpable pedal pulse. CR 2 sec
PSYCH: Normal and appropriate interaction.
Scores
Heart Failure Risk
Heart Failure Risk Score: Yes
History of Stroke or TIA: No
History of intubation for respiratory distress: No
Heart rate on ED arrival >/= 110: No
SaO2 <90% on arrival on room air: No
HR >/=110 during 3min walk test (or too ill to perform test): No
ECG has acute ischemic changes: No
Urea >/=12mmol/L (BUN 33.6mg/dL): Yes
Serum CO2>/=35mmol/L: No
Troponin I or T elevated to CA Level (0.4mg/dL): No
NT-proBNP >/=5,000ng/L (5,000pg/ml): No
HF Risk Score: 1
Admission Status: MEDIUM RISK 5.1% Consider observation or discharge to home with homecare & f/u visit to PCP/Irrigation Installation Specialist, or SNF for treatment
Heart Score for Chest Pain Patients
STEMI patient?: Not applicable
Withdrawal Assessment of Alcohol
Withdrawal Assessment Completed?: Not applicable
Course
Orders/Labs/Results
Orders:
Orders
09/17/25 15:57
Electrocardiogram (*1) Urgent
Reason for Study: Shortness of Breath
EKG- Treatment ONCE
Chest [CR Chest - 2 Views ] Urgent
Comment:
Reason For Exam: wheezing
09/17/25 19:39
Complete Blood Count/With Diff Urgent
Comprehensive Metabolic Panel Urgent
NT-proBNP Urgent
Troponin I Urgent
09/17/25 20:33
Furosemide [Lasix] 40 mg IV NOW STA
Abnormal Lab Results
09/17/25
19:39
Hgb 12.9 L g/dL
(13.0-18.0)
MCH 25.5 L pg
(27.0-31.0)
MCHC 31.5 L g/dL
(33.0-37.0)
RDW 17.9 H %
(11.5-14.5)
Abs Immat Gran (auto) 0.1 H 10^3/uL
(0-0.05)
Absolute Lymphs (auto) 1.1 L 10^3/uL
(1.2-3.4)
Immature Gran % 0.6 H %
(0-0.5)
Neutrophils % 75.5 H %
(42.2-75.2)
Lymphocytes % 14.7 L %
(20.5-51.1)
Potassium 5.3 H mmol/L
(3.5-5.1)
BUN 37 H mg/dl
(9-20)
Creatinine 2.0 H mg/dL
(0.7-1.3)
Total Protein 8.4 H g/dl
(6.3-8.2)
09/17/25 19:39
09/17/25 19:39
Vital Signs
Initial and Last Documented VS:
Initial Vital Signs
Temp Pulse Resp Pulse Ox
98.3 F 78 18 97
09/17/25 15:53 09/17/25 15:53 09/17/25 15:53 09/17/25 15:53
Last Documented Vital Signs
Temp Pulse Resp BP Pulse Ox
98.3 F 92 16 118/68 95
09/17/25 15:53 09/17/25 21:02 09/17/25 21:01 09/17/25 21:02 09/17/25 21:01
MDM/Problems Addressed
Differential Diagnosis Includes:
CHF
PVD/PAD
Valvular dysfunction
Renal dysfunction
Electrolyte imbalance
MDM/Problems Addressed:
74-year-old male presented to the ER for a few weeks of worsening lower extremity edema but no respiratory symptoms. Patient is hemodynamically stable and in no acute distress. He does have considerable 2+ pitting edema to the bilateral lower
extremities. Will check labs, EKG and chest x-ray. Given patient's stability will consider treating patient here with an IV dose of Lasix and temporarily increasing his home Lasix but patient will need close follow-up with cardiology so we will
discuss with cardiology about getting patient closer follow-up.
Chronic conditions affecting care: Other (CHF)
Acute Exacerbation and/or Progression of Chronic Illness: Other (CHF)
*Radiology
Radiology exam reviewed: preliminary read by ED provider (normal CXR)
*Pulse Oximetry
SaO2: 97
Oxygen Mode of Delivery: Room air
Patient hypoxic: no
*EKG
Heart Rate: 84
Rate: normal
Rhythm: a-fib
[place]: normal axis
*Critical Care Note
Total Time (30-74mins, 75-104mins- exclusive of procedures): Not Applicable
Patient Management
Discussion with other providers: Forensic Dna Analyst
Escalation/DeEscalation of care consider admission/obs:
Case was discussed with on-call business office technician, Dr. Gonzalez, I reviewed the patient's lab findings as well as presentation and we ultimately agreed that it would be okay to initiate the patient on 40 mg of Lasix prior to being discharged and
temporarily increase his Lasix dose to 40 mg p.o. daily for the next couple of days. Patient to get his weight checked within 72 hours. Cardiology will also ensure patient gets seen in office within the coming week. Both patient and are in
agreement with this plan, aware of return precautions to the ER. A new prescription for the Lasix 40 mg was sent to the patient's pharmacy.
ED Attending Note
-
Portions of this chart may have been created with voice recognition software.� Occasional wrong word or��sound alike� substitutions may have occurred due to the inherent limitations of voice recognition software.
Discharge Plan
Departure
Patient Disposition: Home (Routine Discharge)
Date of Disposition: 09/17/25
Time of Disposition: 20:33
Patient with high blood pressure during this ER visit?: No
Discharge Problem:
Edema, CKD (chronic kidney disease)
Instructions: *CBC Heart Failure Instructions
Prescriptions:
New
furosemide [Lasix] 40 mg tablet
40 mg PO DAILY 7 Days Qty: 7 0RF
No Action
metoprolol succinate 50 mg Tablet Extended Release 24 Hr
75 mg PO QPM
nifedipine 60 mg Tablet Extended Release
60 mg PO QPM
apixaban 5 mg Tablet
5 mg PO BID
tamsulosin 0.4 mg Capsule
0.4 mg PO DAILY Qty: 30 0RF
finasteride 5 mg Tablet
5 mg PO DAILY Qty: 30 0RF
escitalopram oxalate 10 mg Tablet
10 mg PO DAILY Qty: 30 0RF
furosemide 20 mg Tablet
20 mg PO DAILY
doxycycline hyclate 100 mg capsule
100 mg PO BID Qty: 14 0RF
Referrals:
Viktor Arthur DO [Family Provider, Family Practice]
Interventions
Interventions:
*Risk Screen - Suicide Last Done: 09/17/25 15:53
*General Assessment Last Done: 09/17/25 15:53
*Neglect/Abuse Screening Last Done: 09/17/25 18:56
*ED COVID-19 Vaccine History Last Done: 09/17/25 15:53
*ED Influenza Vaccine History Last Done: 09/17/25 15:53
[facility] Fall Risk Assessment Tool Last Done: 09/17/25 19:07
*Nursing Disposition Last Done: 09/17/25 21:08
ED- Cardiac Assessment Last Done: 09/17/25 21:07
ED- Pulmonary Assessment Last Done: 09/17/25 21:07
Discharge Date and Time
Discharge Date/Time: 09/17/25 21:13
Print Language: FAROESE
[2025-09-17 20:11] LABS: ALT (SGPT) 17 U/L (0-50); AST (SGOT) 26 U/L (17-59); Albumin 4.7 g/dl (3.5-5.0); Alkaline Phosphatase 61 U/L (38-126); Blood Urea Nitrogen 37 mg/dl (9-20); Calcium 9.3 mg/dl (8.4-10.2); Carbon Dioxide 25 mmol/L (22-30); Chloride 103 mmol/L (98-107); Estimated Creatinine Clearance 37 ml/min; Glucose 81 mg/dl (70-99); Potassium 5.3 mmol/L (3.5-5.1); Sodium 136 mmol/L (135-145); Total Protein 8.4 g/dl (6.3-8.2); eGFR 34.81
[2025-09-17 20:21] LABS: Troponin I < 0.012 ng/ml
[2025-09-17 21:01] VITALS: BP 118/68
[2025-09-17] MEDS: LASIX 40 MG IV (21:02)
== END 2025-09-17 21:13 | disposition home or self-care (01) ==
LOC: EMR 15:43
PROVIDERS: EMERGENCY PHYSICIAN Emergency Medicine; FAMILY PHYSICIAN Family Medicine
DX: R60.0 Localized edema (principal); N18.9 Chronic kidney disease, unspecified; R06.2 Wheezing; I48.91 Unspecified atrial fibrillation; N40.0 Benign prostatic hyperplasia without lower urinary tract symptoms; I50.9 Heart failure, unspecified; Z95.0 Presence of cardiac pacemaker; Z87.442 Personal history of urinary calculi; Z79.01 Long term (current) use of anticoagulants
CPT/HCPCS: 99285; 96374; 71046; 80053; 83880; 84484; 85025; 93005